=== PATIENT | female | born 1960 | race Hispanic/Latino ===

== ENCOUNTER → 2024-10-30 | Outpatient (CLI) | payer BC ==
[~2024-10-30] MED LIST: GADOTERATE MEGLUMINE 10 MMOL/20 ML VIAL IV ONE
--- NOTE | 2024-10-30 12:22 | HMCIMG ---
MR KNEE RIGHT WWO REASON: CHRONIC INSTABILITY COMPARISON: None TECHNIQUE: Routine imaging protocol was performed in the sagittal, axial and coronal plane. Images were also obtained pre and post gadolinium contrast infusion, 19 cc Clariscan IV. FINDINGS: There is a tear in the posterior horn and mid zone of the medial meniscus. There is moderate cartilage loss in the medial joint compartment, there are small marginal osteophytes, the meniscus is partially displaced from the joint interspace by the osteophytes. The lateral meniscus has a complex tear in the anterior horn, mid zone and posterior horn appear intact. Articular cartilage appears better preserved in the lateral joint compartment. There is moderate cartilage loss in the patellofemoral joint space. Cruciate and collateral ligaments appear intact. Quadriceps and patellar tendons appear normal. There are no focal osseous lesions. There is a moderate joint effusion. Surrounding soft tissues appear unremarkable. Postcontrast images were performed. There are no focal masses. There are no focal areas of abnormal contrast enhancement. IMPRESSION: 1. Complex tear anterior horn lateral meniscus, there is also a more linear tear posterior horn and mid zone of the medial meniscus. 2. Moderate cartilage loss in the medial and patellofemoral joint spaces. 3. Moderate joint effusion.
== END | disposition home or self-care (01) ==
LOC: RAH 08:34
PROVIDERS: ATTEND Internal Medicine
DX: S83.271A Complex tear of lateral meniscus, current injury, right knee, initial encounter (principal); S83.241A Other tear of medial meniscus, current injury, right knee, initial encounter; M25.461 Effusion, right knee; M94.8X0 Other specified disorders of cartilage, multiple sites; M25.761 Osteophyte, right knee; M23.51 Chronic instability of knee, right knee; M25.561 Pain in right knee; G89.29 Other chronic pain; R29.6 Repeated falls; W19.XXXA Unspecified fall, initial encounter; Y93.89 Activity, other specified; Y92.89 Other specified places as the place of occurrence of the external cause; Y99.8 Other external cause status
CPT/HCPCS: 73723; A9575